=== PATIENT | female | born 1965 ===

== ENCOUNTER 2016-12-28 16:23 | Emergency (ER) | payer OTHER ==
[2016-12-28 16:32] VITALS: TEMP 98.7; O2SAT 99
--- NOTE | 2016-12-28 16:58 | C.PDOC ---
History Of Present Illness 51 year old female with a history of hypertension presents to the ED with complaints of a mild headache for several days. Patient is visiting from [facility] and realized she was becoming low on her blood pressure medicine Candesartan. She takes 16 mg of Candesartan but began taking 8 mg instead, which is what she took today. Patient denies chest pain, shortness of breath, palpitations, visual changes, extremity weakness, sensory changes. Time Seen by Provider: 12/28/16 16:45 Chief Complaint (Nursing): Headache History Per: Patient History/Exam Limitations: no limitations Onset/Duration Of Symptoms: Days ("several days") Current Symptoms Are (Timing): Still Present Severity: Mild Preceeding Symptoms: None. denies: Visual Disturbances Associated Symptoms: denies: Photophobia, Blurred Vision, Nausea, Vomiting, Extremity Weakness Past Medical History Reviewed: Historical Data, Nursing Documentation, Vital Signs Vital Signs: Last Vital Signs Temp 98.7 F 12/28/16 16:28 Pulse 72 12/28/16 17:01 Resp 18 12/28/16 17:01 BP 139/86 12/28/16 17:01 Pulse Ox 99 12/28/16 18:19 - Medical History PMH: HTN Family History: States: No Known Family Hx - Social History Hx Alcohol Use: No Hx Substance Use: No - Immunization History Hx Tetanus Toxoid Vaccination: Yes Hx Influenza Vaccination: Yes Hx Pneumococcal Vaccination: Yes Review Of Systems Except As Marked, All Systems Reviewed And Found Negative. Constitutional: Negative for: Fever, Chills Cardiovascular: Negative for: Chest Pain, Palpitations Respiratory: Negative for: Cough, Shortness of Breath Gastrointestinal: Negative for: Nausea, Vomiting, Abdominal Pain, Diarrhea Neurological: Positive for: Headache. Negative for: Weakness, Numbness, Dizziness Physical Exam - Physical Exam Appears: Well, Non-toxic, No Acute Distress Skin: Warm, Dry Head: Atraumatic, Normacephalic Eye(s): bilateral: Normal Inspection, PERRL, EOMI Oral Mucosa: Moist Neck: Supple Cardiovascular: Rhythm Regular Respiratory: Normal Breath Sounds, No Rales, No Rhonchi, No Wheezing Extremity: Normal ROM, No Tenderness Neurological/Psych: Oriented x3, Normal Speech, Normal Cognition, Normal Cranial Nerves, No Cerebellar Signs, Normal Motor, Normal Sensation Gait: Steady (ambulating normally) ED Course And Treatment O2 Sat by Pulse Oximetry: 99 (room air ) Pulse Ox Interpretation: Normal Progress Note: Patient was given Tylenol PO and Losartan 50 mg (patient took Candesartam 8mg this AM, which is equivalent to 50mg Losartan) for total dose of 100mg. Patient also requesting prescription for Valproic Acid 500 mg BID. Reevaluation Time: 17:10 Reassessment Condition: Improved (Patient reassessed, is resting comfortably, in no current pain/distress. Headache has resolved. Rxs given for Losartan 100mg and Valproic acid. Patient instructed to follow up with PMD in [facility] , or to return to ED if she has any concerning symptoms.) Disposition Counseled Patient/Family Regarding: Studies Performed, Diagnosis, Need For Followup, Rx Given - Disposition Referrals: [facility] [Outside] Disposition: HOME/ ROUTINE Disposition Time: 17:10 Condition: STABLE Additional Instructions: VAYA A LA FARMACIA PARA LAS PRESCRIPCIONES SEGUIMIENTO EN LA CLNICA MDICA EN 1-2 [employer] [employer] SEGN LO DIRIGIDO DEVUELVA A LA KARLIE DE EMERGENCIA SI LOS SNTOMAS EMPEORARAN Prescriptions: Losartan Potassium [Cozaar] 100 mg PO DAILY #30 tablet Valproic Acid [Depakene] 500 mg PO BID #60 sgl Instructions: Hypertension (ED) Forms: [employer] (French) Print Language: ICELANDIC - Clinical Impression Clinical Impression: Headache, Medication refill, Hypertension - Scribe Statement The provider has reviewed the documentation as recorded by the Scribe Tammy Martins All medical record entries made by the Scribe were at my direction and personally dictated by me. I have reviewed the chart and agree that the record accurately reflects my personal performance of the history, physical exam, medical decision making, and the department course for this patient. I have also personally directed, reviewed, and agree with the discharge instructions and disposition.
[2016-12-28 17:02] VITALS: BP 139/86; PULSE 72; RESP 18
== END 2016-12-28 17:23 | disposition home or self-care (01) ==
LOC: C.ER 16:23
DX: R51 Headache (principal); I10 Essential (primary) hypertension; Z76.0 Encounter for issue of repeat prescription